=== PATIENT | female | born 1970 | race Caucasian/White ===

== ENCOUNTER 2016-08-05 20:38 | Emergency (ER) | payer BC ==
[~2016-08-05] VITALS: Ht 152.4 cm; Wt 53.5 kg
[2016-08-05 20:50] VITALS: BP 159/88
[2016-08-05] MEDS ORDERED: ATARAX,VISTARIL50 MG PO (21:09)
[2016-08-05] MEDS ORDERED: PREDNISONE10 MG PO (21:09)
== END 2016-08-05 21:30 | disposition home or self-care (01) ==
LOC: ED 20:38
DX: L50.9 Urticaria, unspecified (principal); Z91.030 Bee allergy status

== ENCOUNTER → 2020-01-03 | Outpatient (CLI) | payer BC ==
[~2020-01-03] MED LIST: ATARAX,VISTARIL50 MG PO; PREDNISONE10 MG PO
== END | disposition home or self-care (01) ==
LOC: COVID19 14:42
PROVIDERS: ATTEND Internal Medicine
DX: Z20.828 Contact with and (suspected) exposure to other viral communicable diseases (principal)

== ENCOUNTER → 2020-11-02 | Outpatient (CLI) | payer BC | END | disposition home or self-care (01) | LOC: COVID19 17:43 | PROVIDERS: ATTEND Internal Medicine | DX: U07.1 COVID-19 (principal) ==

== ENCOUNTER → 2021-02-12 | Outpatient (CLI) | payer BC | LOC: COVID19 15:13 | PROVIDERS: ATTEND Internal Medicine | DX: Z11.52 Encounter for screening for COVID-19 (principal); Z20.822 Contact with and (suspected) exposure to COVID-19 ==